=== PATIENT | female | born 1970 | race Caucasian/White ===

== ENCOUNTER 2023-09-22 02:34 | Emergency (ER) | payer SELFPAY ==
--- NOTE | ~2023-09-22 | XR_ITS ---
AP and oblique views of the right ribs Clinical History: Pain Findings: No rib fracture is seen. Osseous alignment is anatomic. Lungs are clear, without focal cons olidation or pleural effusion. Cardiomediastinal contour is within normal limits. Soft tissues are un remarkable. Impression: No rib fracture is seen. Reviewed, dictated and finalized at [facility]. Impression: No rib fracture is seen.
[2023-09-22 02:36] VITALS: BP 146/96; PULSE 85; RESP 16; TEMP 36.2; O2SAT 100
[2023-09-22 03:41] VITALS: BP 125/87; PULSE 87; RESP 20; TEMP 36.8; O2SAT 100
[2023-09-22 04:39] LABS: Appearance Urine Clear (Clear); Bilirubin Urine Negative (Negative); Blood Urine Negative (Negative); Color Urine Yellow (Yellow); Glucose Urine UA Negative (Negative); Ketones Urine Negative (Negative); Leukocyte Esterase Ur Negative LEU/UL (Negative); Nitrate Urine Negative (Negative); Protein Urine Negative (Negative); Specific Grav Ur 1.017 (1.001-1.035)
--- NOTE | 2023-09-22 05:02 | ED.GENADULT ---
HPI - General Adult General Chief complaint: Unspecified Stated complaint: rib pain from accident 2.5 years ago Time Seen by Provider: 09/22/23 04:35 History of Present Illness HPI narrative: Patient is a 53-year-old homeless female who presents to the emergency department brought in via EMS initially for rib pain. When asked why she was brought in. Patient states that she was walking from a different city and was found by [place] and brought to the emergency department. Patient was recently released from the [facility] care home earlier today and given resources of from [facility] for chest not the patient has not contacted them today since it is nighttime and plans to do so in the morning around 6:00 a.m. While evaluating the patient, patient denies rib pain and states that her ribs are no longer bothering her but now is complaining of burning when she pees and is requesting an antibiotic. Patient did inform the nurse she was having some vaginal burning and did inform her that she got rate 2 and half years ago but denies any vaginal pain or discharge for me and denies any vaginal bleeding. Patient states that she does has some burning when she urinates and believes she has a UTI and wants to be treated with an antibiotic but nobody wants to give her an antibiotic. She is currently denying any additional symptoms or concerns. Review of Systems Review of Systems: All systems are reviewed and are negative unless stated otherwise in the HPI. Exam Narrative: General: Alert, awake, afebrile, in no acute distress. HEENT: PERRL, no rhinorrhea, no post nasal drip, oropharynx clear. Cardiovascular: Regular rate and rhythm, no murmurs, rubs or gallops, no peripheral edema. Respiratory: Clear to auscultation bilaterally, no tachypnea, no wheezing, no rhonchi, no rubs, no respiratory distress. Abdomen: Soft, nontender, nondistended, no rebound, no guarding, no peritoneal signs. Musculoskeletal: No joint swelling or deformity, normal muscle tone. Skin: No rashes or petechia, no signs of infection. Neurological: Alert and oriented to person, place, and time. Follows all commands. No focal deficits, speech is clear and fluent. Course Vital Signs Vital signs: Vital Signs Temperature 97.2 F L 09/22/23 02:36 Pulse Rate 85 09/22/23 02:36 Respiratory Rate 16 09/22/23 02:36 Blood Pressure 146/96 H 09/22/23 02:36 Pulse Oximetry 100 09/22/23 02:36 Temperature 98.2 F 09/22/23 03:41 Pulse Rate 85 09/22/23 06:10 Respiratory Rate 16 09/22/23 06:10 Blood Pressure 131/70 09/22/23 06:10 Pulse Oximetry 98 09/22/23 06:10 Oxygen Delivery Room Air 09/22/23 03:41 Medical Decision Making MDM Narrative Medical decision making narrative: The patient was evaluated by myself in the emergency department. History is obtained from patient who is an independent historian and physical exam was performed. External medical records were reviewed at this time. Imaging studies obtained included right ribs x-ray which was independently interpreted by me revealing no acute process, which is pending final radiology interpretation. Urinalysis was also obtained at this time revealing No evidence of a urinary tract infection. When I went to go back to update the patient inform her that her urinalysis is unremarkable and does not need an antibiotic, this time, patient states that she does not have any dysuria and would just like a place to sleep and I informed her that I will let her sleep until the end of my shift. Differential diagnosis considerations include urinary tract infection, rib fractures, acute viral syndrome and dehydration. Comorbidities impacting this visit include none. I have evaluated and discussed social determinants of health with the patient that could potentially impact subsequent diagnosis and treatment plans including current homeless status. On repeat assessment of the patient, reevaluation revealed that the pa
[2023-09-22 05:09] LABS: Add Urine Microscopic? NO
[2023-09-22 06:10] VITALS: BP 131/70; PULSE 85; RESP 16; O2SAT 98
== END 2023-09-22 06:18 | disposition home or self-care (01) ==
PROVIDERS: Emergency Provider Emergency Medicine
DX: R07.81 Pleurodynia (principal)
CPT/HCPCS: 71100; 81003; 99283